=== PATIENT | female | born 1985 | race American Indian/Alaskan Native ===

== ENCOUNTER 2019-06-28 08:42 | Emergency (ER) | payer MEDICAID, OTHER ==
[2019-06-28 08:55] VITALS: BP 109/59
--- NOTE | 2019-06-28 08:56 | Event Note ---
ED Screening Note ED Screening Note: three nights ago states that she hit her head with a steel door c/o neck pain and PINEDO felt lightheaded initially but improved no LOC pt still has a PINEDO no numbness, no weakness, bowel or bladder incontinence PMHx hydrocephalus, states last had drained 4 months ago no allergies to meds This initial assessment/diagnostic orders/clinical plan/treatment(s) is/are subject to change based on patients health status, clinical progression and re- assessment by fellow clinical providers in the ED. Further treatment and workup at subsequent clinical providers discretion. Patient/guardian urged not to elope from the ED as their condition may be serious if not clinically assessed and managed. Initial orders include: XR of the C-spine
--- NOTE | 2019-06-28 09:47 | XRay Report ---
CERVICAL SPINE, 4 VIEWS INDICATION: neck pain. Injury at work COMPARISON: None. IMPRESSION: Normal alignment. No significant discogenic DJD or facet arthropathy. No acute osseous or soft tissue abnormality. Normal cervical spine films. Signer Name: Girma Hernandez Jr, MD Signed: 06/28/2019 9:43 AM Workstation Name: [id number]
[2019-06-28] MEDS ORDERED: HYDROcodone/ACETAMINOPHEN 5-325 MG TAB PO ONE (10:08)
--- NOTE | 2019-06-28 10:19 | Emergency Department Report ---
HPI - General Chief Complaint: Head Injury Time Seen by Provider: 06/28/19 09:09 - HPI HPI: 33-year-old Geovanna female presents to the emergency department with a complaint of a headache and some neck pain after she was hit in the head by a metal bar at work on Friday, 3 days ago. There was no loss of consciousness but she says that she did feel dazed/dizzy. The pain has continued over the weekend despite taking some Tylenol for her symptoms. No slurred speech, vision change or any other neurological deficits. No other past medical history. Currently her headache is about 8 out of 10 in intensity. ED Past Medical Hx - Past Medical History Previous Medical History?: No - Surgical History Past Surgical History?: No - Social History Smoking Status: Never Smoker Substance Use Type: None - Medications Home Medications: Home Medications Medication Instructions Recorded Confirmed Last Taken Type HYDROcodone/APAP 5-325 [[place] 1 each PO Q6HR PRN #8 tablet 06/28/19 Unknown Rx 5/325] ED Review of Systems ROS: Stated complaint: HEAD INJURY/WORK RELATED Other details as noted in HPI Comment: All other systems reviewed and negative Constitutional: denies: chills, fever Eyes: denies: eye pain, vision change Respiratory: denies: shortness of breath Cardiovascular: denies: chest pain Gastrointestinal: denies: abdominal pain Musculoskeletal: denies: back pain Neurological: headache. denies: weakness, numbness, paresthesias Physical Exam - Physical Exam Vital Signs: Vital Signs 06/28/19 06/28/19 08:53 09:23 Temperature 98.3 F Pulse Rate 89 Respiratory 20 16 Rate Blood Pressure 109/59 O2 Sat by Pulse 100 Oximetry Physical Exam: GENERAL: The patient is well-developed well-nourished. HENT: Normocephalic. Patient has moist mucous membranes. EYES: Extraocular motions are intact. Pupils equal reactive to light bilater ally. No nystagmus. NECK: Supple. Trachea is midline. CHEST/LUNGS: Clear to auscultation. There is no respiratory distress noted. HEART/CARDIOVASCULAR: Regular. There is no tachycardia. There is no murmur. ABDOMEN: Abdomen is soft, nontender. Patient has normal bowel sounds. There is no abdominal distention. SKIN: Skin is warm and dry. NEURO: The patient is awake, alert, and oriented. The patient is cooperative. The patient has no focal neurologic deficits. Normal speech. Cranial nerves II through XII grossly intact. No pronator drift or dysmetria. MUSCULOSKELETAL: There is no tenderness or deformity. There is no limitation range of motion. There is no evidence of acute injury. ED Course Vital Signs 06/28/19 06/28/19 08:53 09:23 Temperature 98.3 F Pulse Rate 89 Respiratory 20 16 Rate Blood Pressure 109/59 O2 Sat by Pulse 100 Oximetry ED Medical Decision Making - Radiology Data Radiology results: report reviewed, image reviewed interpreted by me: X-ray of the cervical spine does not show any fracture, subluxation or any acute process. CT head/brain wo con INDICATION / CLINICAL INFORMATION: 33 years Female; headache, head trauma. TECHNIQUE: Routine CT head without contrast. All CT scans at this location are performed using CT dose reduction for ALARA by means of automated exposure control. COMPARISON: None. FINDINGS: BRAIN / INTRACRANIAL CONTENTS: No acute hemorrhage, mass effect, midline shift, hydrocephalus, or acute, large territorial infarct. No chronic infarct or atrophy appreciated. No significant white matter abnormality. CRANIOCERVICAL JUNCTION: Mild tonsillar ectopia, without significant sequela. ORBITS: No significant abnormality of visualized orbits. SINUSES / MASTOIDS: No significant abnormality the visualized paranasal sinuses or mastoid air cells. ADDITIONAL FINDINGS: None. IMPRESSION: 1. No focal mass, hemorrhage, hydrocephalus, or acute, large territorial infarct. - Medical Decision Making This patient presents with a complaint of a headache and neck pain after she was hit in the head by a metal bar at work about 3 or 4 days ago. Since being in the emergency department she has remained awake, alert and in no acute distress. She does not have any focal, motor or sensory deficits in her cranial nerves are intact. CT of the head without contrast did not show any bleed, shift, mass, ischemia, fracture, or any other acute process. X-ray of the cervical spine did not show any fracture, subluxation, or any other acute process. Patient will be discharged home to follow-up with primary care. She will return to the ER with any worsening of her symptoms or any acute distress. - Differential Diagnosis concussion, contusion, skull fracture, subarachnoid Critical Care Time: No Critical care attestation.: If time is entered above; I have spent that time in minutes in the direct care of this critically ill patient, excluding procedure time. ED Disposition Clinical Impression: Head injury Qualifiers: Encounter type: initial encounter Qualified Code(s): S09.90XA - Unspecified injury of head, initial encounter Headache Qualifiers: Headache type: unspecified Headache chronicity pattern: unspecified pattern Intractability: not intractable Qualified Code(s): R51 - Headache Disposition: DC-01 TO HOME OR SELFCARE Is pt being admited?: No Condition: Stable Instructions: Concussion (ED), Minor Head Injury (ED) Additional Instructions: Please follow-up with a primary care physician in the next few days. Return to the emergency Department with any worsening of your symptoms or any acute distress. You have been prescribed a medication that is sedating and therefore should not be taken prior to driving, working, and responsible for children and in no way should be mixed with alcohol of any quantity. Prescriptions: HYDROcodone/APAP 5-325 [[place] 5/325] 1 each PO Q6HR PRN #8 tablet PRN Reason: Pain Referrals: PRIMARY CAREMD [Primary Care Provider] - 2-3 Days DK THAO MD [Staff Physician] - 2-3 Days [facility] [Outside] - 2-3 Days Forms: Work/School Release Form(ED) Time of Disposition: 10:51
--- NOTE | 2019-06-28 10:40 | Cat Scan Report ---
CT head/brain wo con INDICATION / CLINICAL INFORMATION: 33 years Female; headache, head trauma. TECHNIQUE: Routine CT head without contrast. All CT scans at this location are performed using CT dos e reduction for ALARA by means of automated exposure control. COMPARISON: None. FINDINGS: BRAIN / INTRACRANIAL CONTENTS: No acute hemorrhage, mass effect, midline shift, hydrocephalus, or acu te, large territorial infarct. No chronic infarct or atrophy appreciated. No significant white matter abnormality. CRANIOCERVICAL JUNCTION: Mild tonsillar ectopia, without significant sequela. ORBITS: No significant abnormality of visualized orbits. SINUSES / MASTOIDS: No significant abnormality the visualized paranasal sinuses or mastoid air cells. ADDITIONAL FINDINGS: None. IMPRESSION: 1. No focal mass, hemorrhage, hydrocephalus, or acute, large territorial infarct. Signer Name: Maxx Acevedo MD, III Signed: 06/28/2019 10:35 AM Workstation Name: [id number]
== END 2019-06-28 10:58 | disposition home or self-care (01) ==
LOC: ED 08:42
DX: S09.90XA Unspecified injury of head, initial encounter (principal); M54.2 Cervicalgia; Z79.899 Other long term (current) drug therapy; W22.8XXA Striking against or struck by other objects, initial encounter; Y93.89 Activity, other specified; Y92.69 Other specified industrial and construction area as the place of occurrence of the external cause; Y99.8 Other external cause status
CPT/HCPCS: 70450; 72040; 99284